=== PATIENT | male | born 1985 | race Caucasian/White ===

== ENCOUNTER 2021-03-06 18:01 | Emergency (ER) | payer OTHER ==
[~2021-03-06] VITALS: Ht 182.9 cm; Wt 113.6 kg
[2021-03-06 22:43] VITALS: BP 125/76; PULSE 79; TEMP 98
== END 2021-03-06 22:43 | disposition home or self-care (01) ==
LOC: COL.ER 18:01
DX: U07.1 COVID-19 (principal)